=== PATIENT | female | born 1940 | race Caucasian/White ===

== ENCOUNTER 2019-03-23 14:24 | Outpatient (CLI) | payer MEDICARE, OTHER, SELFPAY ==
[2019-03-26 12:13] LABS: Lyme Ab w Rflx to Lyme Confirm Negative
== END 2019-03-23 14:44 ==
PROVIDERS: PCP Family Medicine; Visit Provider Family Medicine
DX: W57.XXXA Bitten or stung by nonvenomous insect and other nonvenomous arthropods, initial encounter (principal); T14.8XXA Other injury of unspecified body region, initial encounter
CPT/HCPCS: 36415; 86618

== ENCOUNTER 2019-05-22 19:10 | Outpatient (REF) | payer MEDICARE, OTHER, SELFPAY | END 2019-05-22 19:30 | LOC: LBN 19:10 | PROVIDERS: PCP Family Medicine; Visit Provider Family Medicine | DX: N76.0 Acute vaginitis (principal) | CPT/HCPCS: 87480; 87510; 87660 ==